=== PATIENT | female | born 1940 | race Caucasian/White ===

== ENCOUNTER → 2016-10-22 | Outpatient (CLI) | payer MEDICARE ==
[~2016-10-22] MED LIST: ALLEVE; FOLIC ACID1 MG; LEVAQUIN PO; LOPRESSOR PO; METHOTREXATE; NORCO 5/325 TAB1 TAB PO; REMICADE; ROBAXIN 750750 M1 PO; VICODIN 5/1 TAB 5/50 PO; [UNRECOGNIZED DRUG - OTHER]
--- NOTE | ~2016-10-22 | CR63 ---
[facility] A Service of [facility] & [facility] RADIOLOGY TEXT RESULTS PATIENT: JUAN C THURSTON LOCATION: SRAD : 41 UNIT #: [id number] AGE: [address]: Melanie Riojas SEX: F ORDER DR: [id number] [address] [address] [id number] O MR#: [id number] Acc #: [id number] NAME: JUAN C THURSTON : 1940 SEX: F STUDY DATE/TIME: 10/22/2016 11:12 UNIT: [facility] ROOM: STUDY DESCRIPTION: CR Chest 2 View Attending Physician: Dalila Riojas A.P.R.N. Referring Physician: Dalila Riojas A.P.R.N. Ordering Physician: Dalila Riojas A.P.R.N. Primary Care Physician: Namita Rawls M.D. MEDICAL IMAGING REPORT This report is preliminary unless electronic signature is present. EXAM Chest PA and lateral, 10/22/2016. HISTORY Wheezing on physical examination 6 days ago, chest congestion. Benign essential hypertension. Smoking history. FINDINGS Two views of the chest were obtained. The lungs are clear. The heart and mediastinum have a normal contour, and the heart size is normal. No pleural effusions are seen. The lungs are hyperinflated, consistent with chronic obstructive pulmonary disease. There is no evidence of active disease. IMPRESSION Chronic obstructive pulmonary disease. No active disease. Dictated by... Bart Chow M.D. THIS IS AN ELECTRONICALLY VERIFIED REPORT Bart Chow M.D. at 10/24/2016 8:03 AM FRANKIE/niyah TD: 10/22/2016 16:04 JOB #: [id number] MEDICAL IMAGING REPORT Page 1 of 1
== END | disposition home or self-care (01) ==
LOC: SRAD 11:06
DX: M06.09 Rheumatoid arthritis without rheumatoid factor, multiple sites (principal); M85.9 Disorder of bone density and structure, unspecified; Z79.899 Other long term (current) drug therapy; J44.9 Chronic obstructive pulmonary disease, unspecified
CPT/HCPCS: 71020

== ENCOUNTER 2016-12-02 09:54 | Emergency (ER) | payer MEDICARE ==
--- NOTE | ~2016-12-02 | CR210 ---
[facility] A Service of [facility] RADIOLOGY TEXT RESULTS PATIENT: JUAN C THURSTON LOCATION: SED : 41 UNIT #: [id number] AGE: [address]: Yan Rouse SEX: F ORDER DR: [id number] [address] [address] [id number] E MR#: [id number] Acc #: [id number] NAME: JUAN C THURSTON : 1940 SEX: F STUDY DATE/TIME: 12/02/2016 10:19 UNIT: SED ROOM: STUDY DESCRIPTION: CR Ribs Uni 2 View W PA Ch Lt Attending Physician: Yan Rouse P.A.-C. Ordering Physician: Yan Rouse P.A.-C. Primary Care Physician: Namita Rawls M.D. MEDICAL IMAGING REPORT This report is preliminary unless electronic signature is present. EXAM PA chest with left ribs. HISTORY Left-sided rib pain, chest pain for a month. Dog stepped on chest. Prior smoker. COMPARISON Two-view chest 10/22/2016. FINDINGS PA view of the chest demonstrates diffuse lung disease with predominately reticular and cystic pattern throughout both lungs most likely represents underlying emphysema and fibrosis. No acute airspace disease or consolidation. No effusions. No mass lesions. Detailed views of the left ribs demonstrates no fracture or deformity. No lytic or blastic lesions. Soft tissues are unremarkable. IMPRESSION 1. No acute cardiopulmonary disease. Diffuse pulmonary changes suggest chronic lung disease probably representing underlying emphysema and fibrosis. 2. No evidence of rib fracture or deformity. Dictated by... Jose Antonio Flores M.D. THIS IS AN ELECTRONICALLY VERIFIED REPORT Jose Antonio Flores M.D. at 12/02/2016 4:49 PM JMS/kaylaw [facility] A Service of [facility] RADIOLOGY TEXT RESULTS PATIENT: JUAN C THURSTON LOCATION: SED : 41 UNIT #: [id number] AGE: [address]: Yan Rouse SEX: F ORDER DR: TD: 12/02/2016 13:47 JOB #: [id number] MEDICAL IMAGING REPORT Page 1 of 1
== END 2016-12-02 11:16 | disposition home or self-care (01) ==
LOC: SED 09:54
DX: N64.4 Mastodynia (principal); I10 Essential (primary) hypertension; F17.210 Nicotine dependence, cigarettes, uncomplicated; Z90.710 Acquired absence of both cervix and uterus; Z90.89 Acquired absence of other organs; Z79.899 Other long term (current) drug therapy; Z88.6 Allergy status to analgesic agent
CPT/HCPCS: 71100; 99283